=== PATIENT | female | born 1950 | race Two or more races ===

== ENCOUNTER → 2016-08-18 | Outpatient (CLI) | payer OTHER, MEDICAID | END | disposition home or self-care (01) | LOC: XYW 10:03 | PROVIDERS: ATTEND Internal Medicine Cardiovascular Disease | DX: I25.10 Atherosclerotic heart disease of native coronary artery without angina pectoris (principal) | CPT/HCPCS: 93306 ==

== ENCOUNTER → 2016-09-09 | Outpatient (CLI) | payer OTHER, MEDICAID ==
[2016-09-09 09:15] LABS: Basophils # (auto) 0 uL; Basophils % (auto) 0.3 % (0.0-2.0); Eosinophils # (auto) 0.1 uL; Eosinophils % (auto) 1.5 % (0.0-7.0); Hematocrit 43.3 % (36.0-46.0); Hemoglobin 14.1 g/dL (12.2-16.2); Lymphocytes % (auto) 27.4 % (10.0-50.0); Mean Corpuscular Hemoglobin 29.8 pg (28.0-32.0); Mean Corpuscular Hgb Conc. 32.7 g/dL (32.0-36.0); Mean Corpuscular Volume 91.1 fL (80.0-100.0); Mean Platelet Volume 8.7 fL (7.4-10.4); Monocytes # (auto) 0.4 uL; Monocytes % (auto) 5.6 % (0.0-12.0); Neutrophils # (auto) 4.8 uL; Neutrophils % (auto) 65.2 % (37.0-80.0); Platelet Count (auto) 264 10^3/uL (140-450); Red Cell Distribution Width 13.9 % (11.6-16.0); White Blood Cell 7.4 10^3/uL (4.4-10.8)
[2016-09-09 09:16] LABS: Urine Bilirubin Negative (Negative); Urine Blood Negative /uL (Negative); Urine Color Yellow (Yellow); Urine Glucose Normal (Normal); Urine Ketone Negative (Negative); Urine Nitrite Negative (Negative); Urine RBC 1 /hpf (0 - 4); Urine Squamous Epithelial Cell FEW /hpf (<5); Urine Urobilinogen Normal (Negative)
[2016-09-09 09:36] LABS: BUN/Creatinine Ratio 14.5; Bilirubin, Total 0.4 mg/dL (0.2-1.0); Calcium 10.1 mg/dL (8.5-10.1); Magnesium 2.4 mg/dL (1.6-2.6); Total Protein 8.2 g/dL (6.4-8.2)
[2016-09-09 09:45] LABS: Potassium 5.6 mmol/L (3.5-5.1)
== END | disposition home or self-care (01) ==
LOC: LAB 08:24
PROVIDERS: ATTEND Internal Medicine Cardiovascular Disease
DX: I25.10 Atherosclerotic heart disease of native coronary artery without angina pectoris (principal); I10 Essential (primary) hypertension; Z12.11 Encounter for screening for malignant neoplasm of colon; R25.2 Cramp and spasm
CPT/HCPCS: 36415; 80053; 80061; 81001; 82270; 82306; 83036; 83735; 84443; 85025

== ENCOUNTER 2018-07-21 11:28 | Emergency (ER) | payer OTHER, MEDICAID ==
[~2018-07-21] VITALS: Ht 162.6 cm; Wt 67.1 kg
[2018-07-21 11:54] VITALS: BP 148/74
[2018-07-21] MEDS ORDERED: KETOROLAC TROMETH 30 MG/ML 1ML VIAL IV ONE (12:00)
[2018-07-21 12:44] LABS: Basophils # (auto) 0 uL; Basophils % (auto) 0.3 % (0.0-2.0); Eosinophils # (auto) 0.2 uL; Eosinophils % (auto) 3.3 % (0.0-7.0); Hematocrit 43.4 % (36.0-46.0); Hemoglobin 14.3 g/dL (12.2-16.2); Lymphocytes # (auto) 2.5 uL; Lymphocytes % (auto) 34.9 % (10.0-50.0); Mean Corpuscular Hemoglobin 30.2 pg (28.0-32.0); Mean Corpuscular Hgb Conc. 32.9 g/dL (32.0-36.0); Mean Corpuscular Volume 91.7 fL (80.0-100.0); Monocytes # (auto) 0.5 uL; Monocytes % (auto) 6.5 % (0.0-12.0); Nucleated Red Blood Cells % 0.2 %; Platelet Count (auto) 227 10^3/uL (140-450); Red Blood Cells 4.73 10^6/uL (4.0-5.20); Red Cell Distribution Width 14.7 % (11.8-14.3); White Blood Cell 7.2 10^3/uL (4.4-10.8)
[2018-07-21 12:59] LABS: INR 0.96 (0.9-1.15); Partial Thromboplastin Time 25.2 sec (23.78-33.04); Prothrombin Time 10.3 sec (9.27-12.13)
[2018-07-21 13:09] LABS: Calcium 9.8 mg/dL (8.5-10.1); Potassium 5.1 mmol/L (3.5-5.1)
[2018-07-21 13:13] LABS: BUN/Creatinine Ratio 13.4; Bilirubin, Total 0.2 mg/dL (0.2-1.0); Total Protein 8.5 g/dL (6.4-8.2)
[2018-07-21] MEDS ORDERED: KETOROLAC TROMETH 30 MG/ML 1ML VIAL IM ONE (14:00)
== END 2018-07-21 14:11 | disposition home or self-care (01) ==
LOC: ER 11:31
DX: M79.605 Pain in left leg (principal); M79.604 Pain in right leg; R79.9 Abnormal finding of blood chemistry, unspecified; R42 Dizziness and giddiness; E78.5 Hyperlipidemia, unspecified; K21.9 Gastro-esophageal reflux disease without esophagitis; I10 Essential (primary) hypertension; E07.9 Disorder of thyroid, unspecified; Z90.49 Acquired absence of other specified parts of digestive tract; Z98.51 Tubal ligation status
CPT/HCPCS: 36415; 80053; 85025; 85610; 85730; 93005; 94761

== ENCOUNTER 2020-02-14 12:55 | Inpatient (IN) | payer OTHER, MEDICAID ==
[~2020-02-14] VITALS: Ht 165.1 cm; Wt 67.5 kg
[2020-02-14 13:52] LABS: Basophils # (auto) 0 10 ^3/uL (0-0.2); Basophils % (auto) 0.3 % (0.0-2.0); Eosinophils # (auto) 0.1 10 ^3/uL (0-0.8); Eosinophils % (auto) 1.1 % (0.0-7.0); Hematocrit 45.5 % (36.0-46.0); Hemoglobin 15.1 g/dL (12.2-16.2); Lymphocytes # (auto) 2.7 10 ^3/uL (0.4-5.4); Lymphocytes % (auto) 27.6 % (10.0-50.0); Mean Corpuscular Hemoglobin 29.9 pg (28.0-32.0); Mean Corpuscular Hgb Conc. 33.1 g/dL (32.0-36.0); Mean Corpuscular Volume 90.2 fL (80.0-100.0); Monocytes # (auto) 0.6 10 ^3/uL (0-1.3); Monocytes % (auto) 5.9 % (0.0-12.0); Neutrophils # (auto) 6.4 10 ^3/uL (1.6-8.6); Neutrophils % (auto) 65.1 % (37.0-80.0); Nucleated Red Blood Cells % 0.2 %; Platelet Count (auto) 241 10^3/uL (140-450); Red Blood Cells 5.04 10^6/uL (4.0-5.20); Red Cell Distribution Width 14.5 % (11.8-14.3); White Blood Cell 9.8 10^3/uL (4.4-10.8)
[2020-02-14 14:06] LABS: Chloride 106 mmol/L (98-107); Potassium 4.2 mmol/L (3.5-5.1); Sodium 138 mmol/L (136-145)
[2020-02-14 14:15] LABS: Alanine Aminotransferase 32 U/L (13-56); Albumin 4.4 g/dL (3.4-5.0); Alkaline Phosphatase 112 U/L (45-117); Anion Gap 6 (5-15); Aspartate Aminotransferase 16 U/L (15-37); BUN/Creatinine Ratio 20.5; Bilirubin, Total 0.2 mg/dL (0.2-1.0); Blood Urea Nitrogen 16 mg/dL (7-18); Calcium 9.7 mg/dL (8.5-10.1); Carbon Dioxide 26 mmol/L (21-32); GFR African American 94 mL/min; GFR Non-African American 78 mL/min; Glucose 91 mg/dL (74-106); Total Protein 8.6 g/dL (6.4-8.2)
[2020-02-14 16:19] LABS: Urine Bacteria FEW /hpf (None Seen); Urine Blood Negative /uL (Negative); Urine Specific Gravity 1.005 (1.001-1.035); Urine WBC 10 /hpf (0 - 5)
[2020-02-14] MEDS ORDERED: cefTRIAXone 1GM/50ML D5W 50 ML IV ONE (18:30)
[2020-02-14] MEDS ORDERED: ASPirin-EC 81 mg tab PO ONE (20:00)
[2020-02-14] MEDS ORDERED: NITROGLYCERIN 0.4 MG SL TAB SL PRN (20:00)
[2020-02-14] MEDS ORDERED: MORPHINE SULF INJ 2 MG/ML SYRINGE 1ML IV PRN (20:00)
[2020-02-14] MEDS ORDERED: MECLIZINE HCL 25 MG TAB PO PRN (20:00)
[2020-02-14 20:28] LABS: Cholesterol 204 mg/dL (< 200); Triglycerides 146 mg/dL (< 150)
[2020-02-14 20:30] LABS: HDL Cholesterol 64 mg/dL (40-59); LDL Cholesterol 126 mg/dL (< 100)
[2020-02-14] MEDS: SODIUM CHLORIDE 0.9% 1,000 ML IV SCH (21:06)
--- NOTE | 2020-02-14 21:27 | NUR ---
Telemetry admit from [facility] admitted to Telemetry unit after no SBAR received. Patient oriented to JOSE NULL RN primary RN, unit, room, bed, and unit policies regarding patient care and visiting hours. Patient now on continuous telemetry monitoring, tele box # 76 and telemetry reading on arrival to unit is sinus rhythm. Patient weighed by bed scale and encouraged to call if they need something. All questions and concerns addressed, patient verbalized understanding.
[2020-02-14 22:00] VITALS: BP 124/62
--- NOTE | 2020-02-14 23:36 | NUR ---
ROUNDS Patient is resting comfortably on right side. No distress noted. Provided crackers and juice as requested.
[2020-02-15 02:31] VITALS: BP 124/62
[2020-02-15] MEDS ORDERED: PANT1INJ3 PO (02:53)
[2020-02-15] MEDS ORDERED: DONE5TAB31 PO (02:53)
[2020-02-15] MEDS ORDERED: OMEP20TA PO (02:53)
[2020-02-15] MEDS ORDERED: ALEN1TAB32 PO (02:53)
[2020-02-15] MEDS ORDERED: NYS15TP (02:53)
[2020-02-15] MEDS ORDERED: ATOR20TA PO (02:53)
[2020-02-15] MEDS ORDERED: CLOP75TA28 PO (02:53)
[2020-02-15 05:01] VITALS: BP 136/73
[2020-02-15 09:00] VITALS: BP 130/76
[2020-02-15] MEDS ORDERED: cefTRIAXone 1GM/50ML D5W 50 ML IV SCH (09:00)
[2020-02-15] MEDS ORDERED: amLODIPine BESYLATE 5 MG TAB PO SCH (10:00)
[2020-02-15] MEDS ORDERED: ASPirin-EC 81 mg tab PO SCH (10:00)
--- NOTE | 2020-02-15 10:30 | NUR ---
Physician rounding Dr. Storm at nurses station, new orders received. Will follow through.
[2020-02-15] MEDS ORDERED: LORazepam 2MG/ML-1ML VIAL IV ONE (11:00)
[2020-02-15] MEDS: SODIUM CHLORIDE 0.9% 1,000 ML IV SCH (11:24)
--- NOTE | 2020-02-15 11:40 | NUR ---
patient off unit patient taken off unit via wheel chair, no s/s of distress noted.
--- NOTE | 2020-02-15 12:15 | NUR ---
patient back on unit patient taken back on unit no s/s of distress noted.
[2020-02-15 13:00] VITALS: BP 147/72
--- NOTE | 2020-02-15 14:54 | NUR ---
I faxed home health order to [facility]-requesting authorization for [facility].
--- NOTE | 2020-02-15 14:57 | NUR ---
Physician rounding Dr. Storm at nurses station, per MD patient can be D/c today. MD to speak to patients family.
--- NOTE | 2020-02-15 15:01 | NUR ---
ss consult Per ss consult home health safety, vitals and medication management. MD order has been sent to [facility]. Per Elaine at [facility] she has accepted patient for service on 02/17/20. Amirah supervisor case loading is getting auth from [facility]. Addendum: 02/15/20 at 1503 by Judy CONNER Amended: Links added.
--- NOTE | 2020-02-15 15:07 | NUR ---
MD spoke with family MD updated patients family regarding test results and plan for D/C today after dinner. Will follow through, will continue care.
[2020-02-15] MEDS ORDERED: LEVO-28 PO (15:15)
[2020-02-15] MEDS ORDERED: AML5T PO (15:15)
--- NOTE | 2020-02-15 16:02 | NUR ---
I received call from Elissa at [facility]-authorization number for [facility] is [id number].
[2020-02-15 16:07] VITALS: BP 110/63
[2020-02-15 16:12] VITALS: BP 147/72
--- NOTE | 2020-02-15 17:45 | NUR ---
Discharge note Discharge instructions given as ordered. Encourage to follow up with PMD as instructed. All questions and concerns addressed. Patient verbalized understanding. IV removed with catheter intact, pressure dressing applied. Telemetry unit returned to ICU. Patient taken to vehicle via wheelchair with all personal belongings, accompanied by staff member. No distress noted at time of departure.
[2020-02-15] MEDS ORDERED: ATORVASTATIN 20 MG TAB PO SCH (22:00)
== END 2020-02-15 17:45 | disposition home health service (06) | DRG 69 ==
LOC: ER 12:55 → TELE 12:56 → TELE-WESTW 21:25
PROVIDERS: ADMIT Nurse Practitioner Acute Care; ATTEND Internal Medicine
DX: G45.9 Transient cerebral ischemic attack, unspecified (principal); N39.0 Urinary tract infection, site not specified; E78.5 Hyperlipidemia, unspecified; I10 Essential (primary) hypertension; R29.810 Facial weakness; Z79.02 Long term (current) use of antithrombotics/antiplatelets; Z86.73 Personal history of transient ischemic attack (TIA), and cerebral infarction without residual deficits
CPT/HCPCS: 36415; 70450; 70551; 71046; 80053; 80061; 81001; 83735; 84439; 84443; 84484; 85025; 87086; 93005; 93306; 93886; 96365; 96366; 97163; G0378; J0696